=== PATIENT | male | born 1995 | race Caucasian/White ===

== ENCOUNTER 2016-10-05 11:10 | Emergency (ER) | payer OTHER ==
[2016-10-05 11:36] VITALS: TEMP 98.2; BMI 22.8
[2016-10-05] MEDS ORDERED: SODIUM CHLORIDE 500 ML IV STA (13:58)
[2016-10-05] MEDS ORDERED: METOCLOPRAMIDE HCL INJECTION 10 MG/2 ML VIAL IVPB ONE (14:00)
[2016-10-05] MEDS ORDERED: ACETAMINOPHEN 1000 MG/100 ML VIAL (NON FORMULARY) IVPB ONE (14:06)
--- NOTE | 2016-10-05 14:07 | PDOC ---
History of Present Illness - General Chief Complaint: Headache Stated Complaint: NECK PAIN/HEADACHE/ Time Seen by Provider: 10/05/16 12:52 History Source: Patient Exam Limitations: No Limitations - History of Present Illness Initial Comments: 10/05/16 16:16 Chief complaint:headache, neck pain with stiffness, blurred vision rt. eye History of present illness. Patient is a 21-year-old male with a history of asthma, thoracic outlet syndrome with removal of bilateral first ribs and surgical repair of Chiari malformation syndrome. 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 He reports having sudden onset of occipital headache with posterior midline neck pain with stiffness and blurred vision and right eye was at his outpatient program at [facility]. Patient reports the pain currently is an 8 out of 10. Patient reports that he received acetaminophen around 10:00 this morning without relief of symptoms. Patient also reports feeling nauseous and vomited once. Pt reports h/o seizures and migraines prior to surgical repair for Chiari malformation 2012 at [facility]. Pt. denies any fever or chills. 10/05/16 16:17 Timing/Duration: getting worse Severity: moderate Associated Symptoms: reports: headaches (occipital ), nausea/vomiting, other ( blurred vision rt. eye, midline neck pain ) Past History - Past Medical History Allergies/Adverse Reactions: Allergies Allergy/AdvReac Type Severity Reaction Status Date / Time Fish Containing Products Allergy Severe Rash Verified 10/05/16 11:32 ibuprofen [From Motrin] Allergy Severe Rash Verified 10/05/16 11:32 ketorolac tromethamine Allergy Severe Rash Verified 10/05/16 11:32 [From Toradol] penicillin G Allergy Severe Rash Verified 10/05/16 11:32 bee pollen Allergy Verified 10/05/16 11:32 fish oil Allergy Verified 10/05/16 11:32 haloperidol [From Haldol] Allergy Verified 10/05/16 11:32 haloperidol lactate Allergy Verified 10/05/16 11:32 [From Haldol] NSAIDS (Non-Steroidal Allergy Verified 10/05/16 11:32 Anti-Inflamma risperidone [From Risperdal] Allergy Verified 10/05/16 11:32 Home Medications: Ambulatory Orders Albuterol Sulfate Inhaler - [Ventolin HFA Inhaler -] 2 inh IH Q4H PRN 10/05/12 Aripiprazole [Abilify] 10 mg PO DAILY 10/05/16 Citalopram Hydrobromide [Celexa -] 40 mg PO DAILY 10/05/16 Clonazepam [KlonoPIN] 0.5 mg PO BID 10/05/16 Mirtazapine [Remeron -] 15 mg PO HS 10/05/16 Asthma: Yes Cardiac Disorders: No COPD: No Diabetes: No GI Disorders: No Disorders: No HTN: No Kidney Stones: No 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 THORACIC OUT LET SYNDROME - Surgical History Abdominal Surgery: No Appendectomy: No Cardiac Surgery: No Cholecystectomy: No Lung Surgery: No Neurologic Surgery: Yes (Arniold Chiari deformity in 2010) Orthopedic Surgery: No - Reproductive History Testicular Surgery: No - Psycho/Social/Smoking Cessation Hx Anxiety: Yes Suicidal Ideation: No Smoking History: Never smoked Have you smoked in the past 12 months: Yes Number of Cigarettes Smoked Daily: 10 Information on smoking cessation initiated: No 'Breaking Loose' booklet given: 10/05/12 Hx Alcohol Use: No Drug/Substance Use Hx: No Substance Use Type: Tranquilizers Hx Substance Use Treatment: Yes Review of Systems - Review of Systems Able to Perform ROS?: Yes Constitutional: No: Symptoms Reported HEENTM: Yes: Blurred Vision (right eye) Respiratory: No: Symptoms reported Cardiac (ROS): No: Symptoms Reported ABD/GI: No: Symptoms Reported : No: Symptoms Reported Musculoskeletal: Yes: Neck Pain (midline posterior ), Joint Stiffness (neck ) Integumentary: No: Symptoms Reported Neurological: Yes: Headache (occipital ). No: Numbness, Paresthesia, Pre- Existing Deficit, Seizure, Tingling, Tremors, Weakness, Unsteady Gait, Ataxia, Dizziness *Physical Exam - Vital Signs Last Vital Signs Temp Pulse Resp BP Pulse Ox 98.2 F 79 18 112/73 100 10/05/16 11:27 10/05/16 11:27 10/05/16 11:27 10/05/16 11:27 10/05/16 11:27 - Physical Exam General Appearance: Yes: Appropriately Dressed HEENT: positive: EOMI, MARCY, Normal ENT Inspection, Other (SNELLEN OD 20/50, OS 20/20 OU 20/25) Neck: positive: Decreased range of motion, Tender midline (SLIGHT), Other (OLD SCAR MIDLINE CERVICAL (CHIARI MALFORMATION)). negative: Lymphadenopathy (R), Lymphadenopathy (L), Rigidity (NO NUCHAL RIGIDITY), Tender lateral Respiratory/Chest: positive: Lungs Clear, Normal Breath Sounds. negative: Chest Tender, Respiratory Distress Cardiovascular: positive: Regular Rhythm, Regular Rate, S1, S2 Gastrointestinal/Abdominal: positive: Normal Bowel Sounds, Soft. negative: Tender, Organomegaly, Distended, Guarding, Rebound, Tenderness, Hepatomegaly, Spleenomegaly Integumentary: positive: Normal Color Neurologic: positive: tool engineer II-XII NML intact, Fully Oriented, Alert, Normal Response, Respond to painful stimul, Responsive, Finger to Nose. negative: Numbness, Sensory Deficit (UPPER AND LOWER ) ED Treatment Course - LABORATORY CBC & Chemistry Diagram: 10/05/16 14:33 10/05/16 14:33 Medical Decision Making - Medical Decision Making Patient is a 21-year-old male with a history of asthma, thoracic outlet syndrome with removal of bilateral first ribs and surgical repair of Chiari malformation syndrome. H/O meningitis viral and bactrial meningitis 2015. He reports having sudden onset of occipital headache with posterior midline neck pain with stiffness and blurred vision and right eye was at his outpatient program at [facility]. Patient reports the pain currently is an 8 out of 10. Patient reports that he received acetaminophen around 10:00 this morning without relief of symptoms. Patient also reports feeling nauseous and vomited once. Pt reports h/o seizures and migraines prior to surgical repair for Chiari malformation 2012 at [facility]. Pt. denies any fever or chills. Differential r/o cranial abnormality, less likely meningitis. Occipital Headache, blurred vision rt. eye Neck pain posterior midline PLAN: cbc with diff PT/INR CT of head without contrast post midline inferior occipital craniotomy for the clinical history of Chiari malformation. crowding of the cerbellar tonsils are present and the foramen magnum compatible with clinical history of Chiari malformation type I without mass effect on the brainstem. No acute intracranial pathology is identified per Dr. Michelle IV insert tylenol 1 gm IVPB reglan 10 mg IVPB NS 0/9 % 500 ml IV now 10/05/16 15:29 Feeling much better and is requesting to go home vision in the right eye is currently 20/25, denies blurred vision now, full range of motion neck Will follow up with his neurologist and primary care provider within the next couple of days Laboratory Tests 10/05/16 10/05/16 14:33 14:33 WBC 8.4 RBC 5.56 Hgb 14.8 Hct 44.1 MCV 79.4 L MCH 26.5 MCHC 33.4 RDW 14.2 Plt Count 289 MPV 9.2 Neutrophils % 67.9 Lymphocytes % 23.3 Monocytes % 8.0 Eosinophils % 0.2 Basophils % 0.6 INR 1.08 PTT (Actin FS) 35.7 H 10/05/16 15:52 10/05/16 15:53 10/05/16 15:53 10/05/16 15:57 10/05/16 15:58 10/05/16 16:10 10/05/16 16:11 10/05/16 16:24 10/06/16 12:01 *DC/Admit/Observation/Transfer Diagnosis at time of Disposition: Headache, acute Qualifiers: Headache type: unspecified Intractability: not intractable Qualified Code(s): R51 - Headache - Discharge Dispostion Disposition: HOME Condition at time of disposition: Stable - Referrals Referrals: STAFF,NOT ON [Primary Care Provider] - - Patient Instructions Printed Discharge Instructions: DI for Headache Additional Instructions: Follow-up with your primary care provider and neurologist within the next couple of days Return to emergency room if symptoms recur or new symptoms develop take acetaminophen as directed by strap maker as directed for pain Patient voiced understanding of discharge instructions and all questions were answered
[2016-10-05] MEDS ORDERED: METOCLOPRAMIDE HCL INJECTION 10 MG/2 ML VIAL ONE (14:13)
[2016-10-05] MEDS ORDERED: ACETAMINOPHEN INJECTION 100 ML IVPB ONE (14:13)
[2016-10-05 14:45] LABS: BASOPHIL 0.6 % (0-2.0); EOSINOPHIL 0.2 % (0-4.5); MCH 26.5 pg (25.7-33.7); MCHC 33.4 g/dl (32.0-35.9); MEAN CELL VOLUME 79.4 fl (80-96); MEAN PLT VOLUME 9.2 fl (7.5-11.1); NEUTROPHILS 67.9 % (42.8-82.8); PLATELET COUNT 289 K/MM3 (134-434); RDW 14.2 % (11.9-15.9); WHITE BLOOD COUNT 8.4 K/mm3 (4.0-10.0)
[2016-10-05 15:04] LABS: INR 1.08 (0.82-1.09); PROTHROMBIN TIME (PATIENT) 11.9 SEC (9.98-11.88)
[2016-10-05 15:07] LABS: ACTIVATED PTT 35.7 SECONDS (26.9-34.4)
[2016-10-05 16:35] VITALS: BP 110/74; PULSE 71
== END 2016-10-05 16:35 | disposition home or self-care (01) ==
LOC: JER 11:10
PROC: 3E033NZ Introduction of Analgesics, Hypnotics, Sedatives into Peripheral Vein, Percutaneous Approach (ICD-10-PCS; principal; 2016-10-05)
PROC: 3E033GC Introduction of Other Therapeutic Substance into Peripheral Vein, Percutaneous Approach (ICD-10-PCS; 2016-10-05)
DX: R51 Headache (principal); J45.909 Unspecified asthma, uncomplicated; F60.9 Personality disorder, unspecified; Z91.5 Personal history of self-harm; Z86.61 Personal history of infections of the central nervous system; G93.5 Compression of brain
CPT/HCPCS: 36415; 70450-TC; 85025; 85610; 85730; 96374; 96375; 99282-25

== ENCOUNTER 2016-10-20 10:16 | Emergency (ER) | payer OTHER ==
[2016-10-20 11:02] VITALS: BP 120/74; PULSE 79; TEMP 98.3; BMI 22.6
--- NOTE | 2016-10-20 11:04 | PDOC ---
History of Present Illness - General Chief Complaint: Seizure Stated Complaint: DIZZINESS Time Seen by Provider: 10/20/16 11:03 - History of Present Illness Initial Comments: 21 year old male with PMH of 10/20/16 11:35 10/20/16 12:59 Past History - Past Medical History Allergies/Adverse Reactions: Allergies Allergy/AdvReac Type Severity Reaction Status Date / Time Fish Containing Products Allergy Severe Rash Verified 10/05/16 11:32 ibuprofen [From Motrin] Allergy Severe Rash Verified 10/05/16 11:32 ketorolac tromethamine Allergy Severe Rash Verified 10/05/16 11:32 [From Toradol] penicillin G Allergy Severe Rash Verified 10/05/16 11:32 bee pollen Allergy Verified 10/05/16 11:32 fish oil Allergy Verified 10/05/16 11:32 haloperidol [From Haldol] Allergy Verified 10/05/16 11:32 haloperidol lactate Allergy Verified 10/05/16 11:32 [From Haldol] NSAIDS (Non-Steroidal Allergy Verified 10/05/16 11:32 Anti-Inflamma risperidone [From Risperdal] Allergy Verified 10/05/16 11:32 Home Medications: Ambulatory Orders Albuterol Sulfate Inhaler - [Ventolin HFA Inhaler -] 2 inh IH Q4H PRN 10/05/12 Aripiprazole [Abilify] 10 mg PO DAILY 10/05/16 Citalopram Hydrobromide [Celexa -] 40 mg PO DAILY 10/05/16 Clonazepam [KlonoPIN] 0.5 mg PO BID 10/05/16 Mirtazapine [Remeron -] 15 mg PO HS 10/05/16 Levetiracetam [Keppra -] 250 mg PO BID #60 tablet 10/20/16 Asthma: Yes Cardiac Disorders: No COPD: No Diabetes: No GI Disorders: No Disorders: No HTN: No Kidney Stones: No 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) Suicide Attempt (Hx): Yes (pill overdose in 07/2012) Seizures: No - Surgical History Abdominal Surgery: No Appendectomy: No Cardiac Surgery: No Cholecystectomy: No Lung Surgery: No Neurologic Surgery: Yes (Arniold Chiari deformity in 2010) Orthopedic Surgery: No - Reproductive History Testicular Surgery: No - Psycho/Social/Smoking Cessation Hx Anxiety: Yes Suicidal Ideation: No Smoking History: Never smoked Have you smoked in the past 12 months: Yes Number of Cigarettes Smoked Daily: 10 Information on smoking cessation initiated: No 'Breaking Loose' booklet given: 10/05/12 Hx Alcohol Use: No Drug/Substance Use Hx: No Substance Use Type: Tranquilizers Hx Substance Use Treatment: Yes *Physical Exam - Vital Signs Last Vital Signs Temp Pulse Resp BP Pulse Ox 98.3 F 79 16 120/74 100 10/20/16 10:20 10/20/16 10:20 10/20/16 10:20 10/20/16 10:20 10/20/16 10:20 ED Treatment Course - LABORATORY CBC & Chemistry Diagram: 10/20/16 12:40 10/20/16 12:40 Medical Decision Making - Medical Decision Making 10/20/16 11:36 *DC/Admit/Observation/Transfer Diagnosis at time of Disposition: Seizure - Discharge Dispostion Admit: No - Prescriptions Prescriptions: Levetiracetam [Keppra -] 250 mg PO BID #60 tablet - Referrals Referrals: PRAVEEN NELSON [Primary Care Provider] - - Patient Instructions Printed Discharge Instructions: DI for Seizure Disorder -- Adult Additional Instructions: You were seen for a possible seizure in your sleep overnight. We gave you a 1 G Keppra dose and prescribed your Keppra medication that you need to take. Please see your neurologist at your scheduled appointment. Please return to the ED if you have worsening symptoms.
--- NOTE | 2016-10-20 11:07 | PDOC ---
Attending Attestation - Resident Resident Name: [email or web address] - HPI HPI: 10/22/16 07:32 Pt presents to the ED complaining of seizure today. history of seizure disorder , chronically non compliant with keppra. - Physicial Exam PE: 10/22/16 07:32 Agree with resident exam. Neurologically intact. - Medical Decision Making 10/22/16 07:32 Pt presents to the ED complaining of seizure. History of seizure disorder non compliant with keppra. Will check labs and discharge home with rx for keppra.
[2016-10-20] MEDS ORDERED: ACETAMINOPHEN/CAFFEINE/BUTALBITAL 1 TAB PO ONE (11:55)
[2016-10-20] MEDS ORDERED: levETIRAcetam 500 MG TABLET (FP) PO ONE ×2 (11:55→12:33)
[2016-10-20] MEDS ORDERED: ACETAMINOPHEN/CAFFEINE/BUTALBITAL 1 TAB ONE (12:33)
[2016-10-20 12:44] LABS: BASOPHIL 0.4 % (0-2.0); EOSINOPHIL 0.6 % (0-4.5); MCH 26.1 pg (25.7-33.7); MCHC 32.7 g/dl (32.0-35.9); MEAN CELL VOLUME 79.7 fl (80-96); MEAN PLT VOLUME 8.5 fl (7.5-11.1); NEUTROPHILS 65.2 % (42.8-82.8); PLATELET COUNT 315 K/MM3 (134-434); WHITE BLOOD COUNT 9.6 K/mm3 (4.0-10.0)
[2016-10-20 13:14] LABS: ALBUMIN 4.8 g/dl (3.4-5.0); ALK PHOS 107 U/L (45-117); ANION GAP 9 (8-16); CALCIUM 9.8 mg/dL (8.5-10.1); CO2 27 mmol/L (21-32); CREATININE 0.7 mg/dL (0.7-1.3); GLUCOSE,RANDOM 83 mg/dL (74-106); MAGNESIUM 2.4 mg/dL (1.8-2.4); SGOT/AST 23 U/L (15-37); SGPT/ALT 42 U/L (12-78); TOT PROT 8.7 g/dl (6.4-8.2)
== END 2016-10-20 13:34 | disposition home or self-care (01) ==
LOC: JER 10:16
DX: R56.9 Unspecified convulsions (principal); J45.909 Unspecified asthma, uncomplicated; F60.3 Borderline personality disorder; Z91.5 Personal history of self-harm
CPT/HCPCS: 36415; 80053; 83735; 85025; 99281-25